=== PATIENT | female | born 1980 | race Caucasian/White ===

== ENCOUNTER 2019-07-25 05:01 | Inpatient (IN) | payer OTHER, SELFPAY ==
[2019-07-25] VITALS (216 sets, daily range): BP systolic 64–154; BP diastolic 29–114; PULSE 73–164; RESP 18–22; TEMP 36.4–37.4; O2SAT 95–100; BMI 32.2
--- NOTE | ~2019-07-25 | XR_ITS ---
EXAMINATION: XR pelvis 1-2V INDICATION: Low back pain TECHNIQUE: AP view the pelvis is obtained on two radiographs. COMPARISON: None available FINDINGS: There is diastases of the pubic symphysis. No fracture is identified. The soft tissues are unremarkable. IMPRESSION: 1. Diastases of the pubic symphysis. No fracture. Reviewed, dictated and finalized at location A.
--- NOTE | 2019-07-25 05:43 | LDADM ---
This patient, Deanne Chen, was admitted to Labor/Delivery/Recovery 102 on 07/25/19 at 05:01. Plans for labor, pain management and were discussed with patient. Patient/family oriented to hospital policies and general routines including ID bracelet, bed and alarms, visiting hours, pain management, procedures, bathroom and other care routines, personal items, smoking policy, room service/diet and guest tray routines, security routines, and visiting hours. Patient/Family are encouraged to report perceived risks to care and to ask questions if they do not understand what they are told or what they should do. See OBIX for further documentation.
[2019-07-25 06:07] LABS: Basophils Percent Auto 0.3 % (0.2-1.2); Eosinophils Percent Auto 0.2 % (0-4.4); Hematocrit 35.2 % (37.0-47.0); Hemoglobin 11.5 g/dL (12.0-15.0); Immature Granulocyte Absolute 0.06 K/mm3 (0.00-0.031); Immature Granulocyte Percent A 0.7 % (0-0.5); Lymphocytes Absolute Auto 2.22 K/mm3 (0.9-3.2); Lymphocytes Percent Auto 24.9 % (18.3-44.2); Mean Corpuscular HGB Conc 32.7 g/dl (32-36); Mean Corpuscular Volume 88.7 fl (80-100); Mean Platelet Volume 10.5 fl (7.4-10.4); Monocytes Absolute Auto 0.8 K/mm3 (0.1-0.6); Monocytes Percent Auto 8.6 % (2.6-8.5); Neutrophils Absolute Auto 5.8 K/mm3 (1.3-6.7); Neutrophils Percent Auto 65.3 % (45.5-73.1); Platelet Count Result 238 k/mm3 (150-375); Red Blood Count 3.97 M/mm3 (4.2-5.4); Red Cell Distribution Width 13.9 % (11.5-14.5); White Blood Count 8.9 K/mm3 (4.5-10.0)
--- NOTE | 2019-07-25 07:40 | WPDOBADMIT ---
Obstetrics - Admit Note Admission Note: record reviewed. No pertinent additions to the history and/or any subsequent changes in the physical findings that are not consistent with the expected course of the were found. MIL, start pitocin, pt declined amniotomy Additions to the history and/or subsequent changes in the physical findings follow. None.
[2019-07-25] MEDS: LACTATED RINGERS 1,000 ML 125 ML IV CONT ×5 (08:00→19:11)
[2019-07-25] MEDS: OXYTOCIN 30 UNITS/NS 500 ML 30 UNITS/500 ML BAG IV CONT (08:01)
[2019-07-25 09:31] LABS: Rapid Plasma Reagin Non-Reactive (NonReactive)
--- NOTE | 2019-07-25 14:30 | WPDANESEPPF ---
Anes - Initial Pre Proc Eval Procedure: Labor Epidural Date/Time: 07/25/19 14:30 Surgeon: Minor Martin MD Pre Op Diagnosis: Induction of Labor Patient Data Age: 38 Gender: F Height: 1.68 m Weight: 90.5 kg Last Vital Signs Temp 36.9 C 07/25/19 12:15 Pulse 91 07/25/19 15:31 BP 126/85 07/25/19 15:31 Pulse Ox 100 07/25/19 15:33 Allergies Allergy/AdvReac Type Severity Reaction Status Date / Time azithromycin Allergy Vomiting Verified 07/12/19 15:42 strawberry Allergy Hives Verified 07/12/19 15:42 Home Medications Medication Instructions Recorded Confirmed Type PNV cmb#95-ferrous fumarate-FA 1 tablet PO DAILY 07/12/19 07/25/19 History [] Laboratory Tests 07/25/19 07/25/19 07/25/19 05:51 05:51 05:51 WBC 8.9 K/mm3 K/mm3 (4.5-10.0) RBC 3.97 M/mm3 L M/mm3 (4.2-5.4) Hgb 11.5 g/dL L g/dL (12.0-15.0) Hct 35.2 % L % (37.0-47.0) MCV 88.7 fl fl (80-100) MCH 29.0 pg pg (26-34) MCHC 32.7 g/dl g/dl (32-36) RDW 13.9 % % (11.5-14.5) Plt Count 238 k/mm3 k/mm3 (150-375) MPV 10.5 fl H fl (7.4-10.4) Immature Gran % (Auto) 0.7 % H % (0-0.5) Neut % (Auto) 65.3 % % (45.5-73.1) Lymph % (Auto) 24.9 % % (18.3-44.2) [place] % (Auto) 8.6 % H % (2.6-8.5) Eos % (Auto) 0.2 % % (0-4.4) Baso % (Auto) 0.3 % % (0.2-1.2) Lymph # (Auto) 2.22 K/mm3 K/mm3 (0.9-3.2) [place] # (Auto) 0.8 K/mm3 H K/mm3 (0.1-0.6) Eos # (Auto) 0.0 K/mm3 K/mm3 (0-0.3) Baso # (Auto) 0.0 K/mm3 K/mm3 (0.0-0.1) Abs Immat Gran (auto) 0.06 K/mm3 H K/mm3 (0.00-0.031) Absolute Neuts (auto) 5.8 K/mm3 K/mm3 (1.3-6.7) Absolute Nucleated RBC 0.0 K/mm3 K/mm3 (0.0-0.012) Nucleated RBC % 0.0 % % (0.0-0.2) RPR Non-reactive (NonReactive) Blood Type O Positive Antibody Screen Negative Patient hx anesthesia problems: none Family hx anesthesia problems: none [facility] Family History Family History Other No pertinent family history Social History Social History Years smoked: 5 Smoking status: Former smoker Tobacco type: cigarettes Second hand tobacco smoke exposure: No Substance use: never Gender identity (if verbalized by the patient): Female Spiritual care concerns: No Anes - Eval Final PreProcedure Day of Procedure 07/25/19 14:30 Patient weight: normal Heart: regular rate and rhythm Lungs: normal air movement Airway: Mallampati scale class II Emergent: no Anesthetic plan: proceed Anesthesia type and monitoring: regional epidural Informed Consent: The patient's anesthetic plan and its attendant risks and benefits were discussed with the patient/family/POA. Questions were solicited and answers provided to the satisfaction of the patient/family/POA.
--- NOTE | 2019-07-25 16:06 | PM.OBPNLAB ---
Pain Control Date/time seen: 07/25/19 1400 SVE /-2. AROM moderate amount of clear odorless fluid
[2019-07-25] MEDS: ONDANSETRON INJ 4 MG/2 ML VIAL IV PUSH (22:41)
[2019-07-26] VITALS (22 sets, daily range): BP systolic 96–180; BP diastolic 58–156; PULSE 64–125; RESP 18–20; TEMP 36.3–36.8; O2SAT 99–100; BMI 10.0
--- NOTE | 2019-07-26 02:09 | P.PCNOB_ITS ---
OB - Delivery Note Procedure Delivery date: 07/26/19 Procedure: vaginal delivery Intrapartal events: None Induction method: AROM and per pitocin protocol Delivery monitor: external FHT, external uterine and internal uterine Route of delivery: Laceration description: Perineal - 1st Degree Delivery repair: vicryl Specimen: No Estimated blood loss (mL): 175 Anesthesia type: Epidural Disposition: other () [place] Baby Date of : 07/26/19 Time of : 01:50 Weeks of gestation at delivery: 39 gender: Female Weight (pounds): 8 Weight (ounces): 13 presentation: vertex position: Left Occiput Anterior Placenta delivery description: Spontaneous cord vessel description: 3 Vessels, Nuchal Cord, Loose and Reduced score one minute: 6 score five minutes: 9 Narrative: pt pain not in control unable to stay still,unable to push after delivery of head, marianela and suprapubic pressure did not help resolve, insurance agency manager was able to reduce the posterior arm and deliver the w/o difficulty, baby to nursery nurse and the warmer, mother and baby in stable condition
[2019-07-26] MEDS: OXYTOCIN 30 UNITS/NS 500 ML 30 UNITS/500 ML BAG 125 UNITS IV CONT (02:34)
[2019-07-26] MEDS: IBUPROFEN 600 MG TABLET PO ×3 (03:48→19:37)
[2019-07-26] MEDS: BENZOCAINE 20% AER SPR (*SP) 56 GM CAN 1 SPRAY TOPICAL (04:08)
[2019-07-26] MEDS: WITCH HAZEL 40 PADS 1 PAD TOPICAL (04:08)
--- NOTE | 2019-07-26 10:50 | PM.OBPNVD ---
OB - PN: Subj Subjective Date/time seen: 07/26/19 10:50 Interval history: pt c/o nerve pain left pain from positioning in labor, narcotics not helping Patient comments: other baby status: doing well OB - PN: Obj Data Labs CBC & Chem 7: 07/25/19 05:51 OB - PN A/P Plan day: 1 Plan: routine care Comments: plan flexeril and PT consult Time Spent With Patient Time: Total time spent is greater than 50% in coordination of care (as documented) at patient's floor/unit and/or counseling patient: Review of Systems Review of Systems: All systems reviewed & are unremarkable except as noted in HPI and below Exam Const: General: comfortable Resp: Effort & Inspection: normal respiratory effort
--- NOTE | 2019-07-26 11:15 | PC.NURSE ---
Called PT and left a message on [facility] regarding a PT consult to be done today.
--- NOTE | 2019-07-26 11:17 | PC.NURSE ---
Spoke with Olivia Aguilar CRNA regarding pt. c/o of pain and decreased mobility of rt. leg. She will see pt. today and evaluate.
--- NOTE | 2019-07-26 11:24 | WPDANLDPN2 ---
Anes-Prog Note L&D Date/Time: 07/26/19 11:24 Comfortable throughout: labor and delivery Neuraxial method: epidural Epidural/Spinal procedure site: clean & non-tender Neuro status: Neuro function grossly intact. Cardiovascular status: normal Respiratory status: normal Airway patency: baseline Mental status: baseline Post-Op hydration status: normal Vital Signs: Last Vital Signs Temp 36.3 C L 07/26/19 07:45 Pulse 68 07/26/19 07:45 Resp 18 07/26/19 07:45 BP 98/58 L 07/26/19 07:45 Pulse Ox 99 07/26/19 02:05 I/O: Intake & Output 07/25/19 07/26/19 07/26/19 23:59 07:59 15:59 Intake Total 1999 1300 240 Output Total 105 Balance 1999 1195 240 Post-procedural complaints: other (Epidural didn't work after multiple catheters with easy LORT and threading of catheter and CSE x2. Also pt with extreme position changes with legs at time of delivery due to shoulder dystocia. Pt now has c/o numbness and pain to right posterior buttock/hip with occasional pain shooting down leg. ) Patient feedback: Patient satisfied with anesthetic care. Other findings: Weakness to Right Leg. PT has been ordered per Evangelina Keenan.
[2019-07-26] MEDS: MULTIVIT/MIN/PREN/FOL AC/IRON TABLET 1 TAB PO (11:50)
[2019-07-26] MEDS: CYCLOBENZAPRINE HCL 10 MG TABLET PO ×2 (11:52→19:37)
--- NOTE | 2019-07-26 12:30 | PC.NURSE ---
PT here to see pt and to evaluate pain/mobility issues.
[2019-07-26] MEDS: DOCUSATE SODIUM 100 MG CAPSULE PO (19:37)
[2019-07-27] MEDS: KETOROLAC 30 MG/ML VIAL (*BKC) IV PUSH ×2 (01:09→08:30)
[2019-07-27] MEDS: CYCLOBENZAPRINE HCL 10 MG TABLET PO ×3 (03:52→21:35)
[2019-07-27 05:59] LABS: Hematocrit 26.5 % (37.0-47.0); Hemoglobin 8.4 g/dL (12.0-15.0)
[2019-07-27 08:30] VITALS: BP 97/57; PULSE 58; RESP 20; TEMP 36.8
[2019-07-27] MEDS: POLYSACCHARIDE IRON COMPLEX 150 MG CAPSULE PO ×2 (08:30→16:32)
[2019-07-27] MEDS: DOCUSATE SODIUM 100 MG CAPSULE PO ×2 (08:30→16:31)
[2019-07-27] MEDS: MULTIVIT/MIN/PREN/FOL AC/IRON TABLET 1 TAB PO (08:30)
--- NOTE | 2019-07-27 10:02 | P.PNOB_ITS ---
OB - PN: Subj Subjective Date/time seen: 07/27/19 10:02 Interval history: pt c/o nerve pain left pain from positioning in labor, narcotics not helping, PT eval and Xray, diagnosis is diastatis of pubis, 3 cm, Spoke with orthopedic Dr. Kerr who rec consult at [facility]/ [facility] due to the degree of separation. Pt currently using walker with assistance to restroom,Dr. colon notified OB - PN: Obj Data Labs CBC & Chem 7: 07/27/19 05:48 Labs: Laboratory Results - last 24 hr 07/27/19 05:48 Hgb 8.4 L D Hct 26.5 L Imaging Radiologist's impression: Impressions Pelvis X-Ray 07/27/19 08:43 IMPRESSION: 1. Diastases of the pubic symphysis. No fracture. OB - PN A/P Plan day: 2 Plan: other (continue pp care, plan PT today for d/c planning, continue NSAIDS, muscle relaxer, abdominal binder, pt may be d/c'd when able to walk with walker unassisted) Time Spent With Patient Time: Total time spent is greater than 50% in coordination of care (as documented) at patient's floor/unit and/or counseling patient: Exam Const: General: alert and acute distress (with walking/standing) Psych: Appearance: grossly normal Affect: normal affect Attitude: coope rative Judgement: Good judgement present (Psych)
--- NOTE | 2019-07-27 12:15 | PC.NURSE ---
PT here to evaluate pt for further needs and to assist pt with using the walker.
[2019-07-27] MEDS: IBUPROFEN 600 MG TABLET PO ×2 (16:32→22:37)
[2019-07-27 20:20] VITALS: BP 103/71; PULSE 71; RESP 18; TEMP 37.1; O2SAT 100
--- NOTE | 2019-07-27 21:30 | PC.NURSE ---
Patient viewed the discharge video Mother & Baby Care, The First Two Weeks . Patient was given the opportunity and encouraged to ask questions. Patient verbalized understanding of information shared and has been given the mother/baby guide for home reference.
[2019-07-28] MEDS: IBUPROFEN 600 MG TABLET PO ×2 (04:19→10:50)
[2019-07-28] MEDS: CYCLOBENZAPRINE HCL 10 MG TABLET PO ×2 (05:55→14:36)
[2019-07-28 07:55] VITALS: BP 97/56; PULSE 69; RESP 16; TEMP 37.1; O2SAT 100
--- NOTE | 2019-07-28 08:05 | P.PNOB_ITS ---
OB - PN: Subj Subjective Date/time seen: 07/28/19 08:05 pain improved. ambulating with walker, bleeding down, Interval history: pt c/o nerve pain left pain from positioning in labor, narcotics not helping, PT eval and Xray, diagnosis is diastatis of pubis, 3 cm, Spoke with orthopedic Dr. Kerr who rec consult at [facility]/ [facility] due to the degree of separation. Pt currently using walker with assistance to restroom,Dr. colon notified OB - PN: Obj Data Labs CBC & Chem 7: 07/27/19 05:48 Imaging Radiologist's impression: Impressions Pelvis X-Ray 07/27/19 08:43 IMPRESSION: 1. Diastases of the pubic symphysis. No fracture. OB - PN A/P Assessment and Plan (1) Traumatic diastasis of pubic symphysis due to delivery: Code(s): O71.6 - Obstetric damage to pelvic joints and ligaments Status: Acute (2) Term delivered: Code(s): O80 - Encounter for full-term uncomplicated delivery Status: Acute Assessment and Plan: ppd #3 - pain improved, has follow up with pt, to get outpt ortho consult, f/u in 32 weeks Time Spent With Patient Time: Total time spent is greater than 50% in coordination of care (as documented) at patient's floor/unit and/or counseling patient: Exam Const: General: comfortable, no acute distress and alert Resp: Effort & Inspection: normal respiratory effort Auscultation: no crackles, no rales and no rhonchi Cardio: Rate: regular rate Heart sounds: no click, no murmurs and no rubs GI: Inspection: non-distended GI Palp: No Tenderness to palpation present (GI) Auscultation: normal bowel sounds Other: Incision - CDI Extrem: General: normal to inspection, no pedal edema and no calf tenderness
--- NOTE | 2019-07-28 08:09 | PM.OBDSVD ---
DS: Discharge Diagnosis Discharge Diagnosis (1) Term delivered: Code(s): O80 - Encounter for full-term uncomplicated delivery Status: Acute OB - DS: Summary OB Procedures : None OB Procedures Intrapartum: Spontaneous Vag Delivery OB Procedures: : None Peripartum Data Delivery Method: Natural Vaginal complications: other (diastasis of pubic symphysis) Status at Discharge Functional status at discharge: independent ambulation Time Spent with Patient Time attestation: Total time spent providing and/or coordinating discharge services: Discharge Plan Discharge Patient Disposition: Home Health Service Activity: pelvic rest Diet: regular Patient Instructions: Antibiotic Form Stand Alone Forms: General Discharge Information Follow-up/Referrals: Minor Martin MD [Physician] - Discharge Medications: New hydrocodone-acetaminophen 5-325 mg tablet 1 - 2 tablet PO Q4H PRN (Reason: pain) Qty: 25 RF: 0 cyclobenzaprine 10 mg tablet 10 mg PO TID Qty: 30 RF: 1 Continued PNV cmb#95-ferrous fumarate-FA [] 28 mg iron- 800 mcg Tablet 1 tablet PO DAILY RF: 0 Date of admission: 07/25/19 05:01 Primary Care Provider: Isabela,Guillermo Wayne Admitting Provider: Minor Martin Attending physician on admission: Minor Martin
[2019-07-28] MEDS: MULTIVIT/MIN/PREN/FOL AC/IRON TABLET 1 TAB PO (08:14)
[2019-07-28] MEDS: DOCUSATE SODIUM 100 MG CAPSULE PO (08:14)
[2019-07-28] MEDS: POLYSACCHARIDE IRON COMPLEX 150 MG CAPSULE PO (08:14)
--- NOTE | 2019-07-28 08:27 | PCPTNOTE ---
Deanne Chen was evaluated for a wheeled walker on 07/28/2019 by this physical therapist. The wheeled walker will resolve patient's mobility limitations and will be used for ADL's within the home. The patient can safely use the wheeled walker. ?The wheeled walker will resolve the patient?s mobility deficits, including impaired strength. Shruthi Hinds, PT, DPT
--- NOTE | 2019-07-28 17:17 | PC.NURSE ---
1530Pt discharged at this time; she reviewed her discharge paper for herself and her baby and signed papers. To car per wheelchair; pt slowly transferred herself with her 's assistance into the car. Home in apparent stable condition.
== END 2019-07-28 15:30 | disposition home or self-care (01) | DRG 560 ==
LOC: ANHLDR 05:07 → ANHOB2 07-26 05:45
PROVIDERS: Advanced Practice Midwife; Admitting Provider Obstetrics & Gynecology; PCP Family Medicine Sports Medicine; Visit Provider Obstetrics & Gynecology
DX: O69.81X0 Labor and delivery complicated by cord around neck, without compression, not applicable or unspecified (principal); Z37.0 Single live birth; Z3A.40 40 weeks gestation of pregnancy; O70.0 First degree perineal laceration during delivery; O66.0 Obstructed labor due to shoulder dystocia
CPT/HCPCS: 36415; 72170; 85014; 85018; 85025; 86592; 86850; 86900; 86901; 97116; 97140; 97161; 97162; 97530; A9270; J1885; J2405; J2590; J2795; J3010; J7120

== ENCOUNTER 2019-09-22 13:30 | Outpatient (RCR) | payer OTHER, SELFPAY ==
--- NOTE | 2019-08-01 12:45 | PTOPEVAL ---
INITIAL PHYSICAL THERAPY EVALUATION and PLAN OF CARE Thank you for referring Deanne Chen to [facility]. Deanne will be seen 1-2x/wk for 4-6 wks. Please review, sign, date and return this plan of care AME. I agree with and certify that the following plan of care is medically necessary. Referring Physician Date Admitting Provider: Attending Provider: Ruben Martin MD Referring Provider: *PT Outpatient Evaluation Start: 08/01/19 11:20 Freq: Status: Active Protocol: Document 08/01/19 11:20 LIVIA (Rec: 08/01/19 12:45 LIVIA [id number]) Therapy Assessment Status Assessment Status Assessment Status Evaluation Outpatient Past Medical History Past Medical History Source of Past Medical History Patient Neurological History Hx Neurological Disorders No Significant History Cardiovascular History Hx Cardiac Disorders No Significant History Respiratory History Hx Asthma Yes: allergy induced Gastrointestinal History Hx Gastrointestinal Disorders No Significant History Genitourinary History Hx Genitourinary Disorders No Significant History Musculoskeletal History Hx Other Musculoskeletal Disorders Yes: pubic symphysis diaphysis with childbirth Hematological History Hx Hematological Disorders No Significant History Endocrine History Hx Endocrine Disorders No Significant History HEENT History Hx Dental Problems Yes: wisdom teeth extraction Integumentary History Hx Skin Disorders No Significant History Reproductive History Hx Abnormal Uterine Bleeding Yes: PP hemorrhage with 1st delivery Hx Other Reproductive Disorders Yes: , ovarian cyst, unilateral salpingo oophorectomy (Abdominal incision) Psychosocial History Hx Anxiety Yes: no meds Hx Depression Yes: no meds Pain History History of Any Previous or Ongoing No Significant History Instance of Pain Anesthesia History Hx Anesthesia Reactions No Significant History Evaluation Information Problem Diagnosis pubic symphysis diastasis Onset 07/26/2019 Subjective Information During delivery - baby's head Query Text:As Reported By Patient/ was sideways, umbilical was Family wrapped around her neck, then baby's shoulder was caught - increase in hip flexion and abduction done for delivery plus allergist immunologist was trying to turn baby - her hands were pt' s pelvis as well. Epidural did not take.
--- NOTE | 2019-09-01 16:08 | PTOPEVAL ---
PHYSICAL THERAPY RE-EVALUATION and UPDATED PLAN OF CARE Thank you for referring Deanne Chen to [facility]. She will continued to be seen in PT 1x/wk x 4 wks. Please review, sign, date and return this plan of care AME. I agree with and certify that the following plan of care is medically necessary. Referring Physician Date Admitting Provider: Attending Provider: Minor Martin MD Referring Provider: *PT Outpatient Evaluation Start: 08/01/19 11:20 Freq: Status: Active Protocol: Document 09/01/19 10:10 LIVIA (Rec: 09/01/19 16:03 LIVIA [id number]) Therapy Assessment Status Assessment Status Assessment Status Re-evaluation Evaluation Information Problem Subjective Information Christiana reports that she continues Query Text:As Reported By Patient/ to be able to do more things Family around the house and with the baby. She was able to get down and back up from the floor without help. She is more comfortable going down into the basement now - did climb stairs reciprocally without thinking about it - but then stopped and went back to single stepping. Increase ease getting into and out of bed - no need for pillow support. A little stiff in middle of night to get up - but once loosens up - does well. After prolonged sitting - a wider base gait pattern is used initially but then can walk normally. Saw Ortho MD - pubic symphysis at at 2 cm - she is to continue with PT - upgrade her activity level as long as she doesn't have pain. Pain Assessment Timing of Pain Assessment Timing of Pain Assessment Assessment Pain Scale Pain Scale Used Numeric (1 - 10) Self Report Pain Assessment Right Buttock(s) Reported Pain Level 0 Pain Description Aching,Shooting Lowest Pain Intensity 0 Greatest Pain Intensity 4 Pain Score Pain Score 0: Self Report Cervical and Lumbar ROM Lumbar ROM Lumbar Flexion (0-90) 50 Query Text:Active in Degrees Lumbar Extension (0-40) 20 Query Text:Active in Degrees Lumbar Lateral Flexion Right (0-40) 20 Query Text:Active in Degrees Lumbar Lateral Flexion Left (0-
--- NOTE | 2019-09-15 11:12 | PCPTNOTE ---
Patient called & cancelled scheduled appointment this date due to not feeling well. She may have mastitis - going to see MD.
--- NOTE | 2019-09-22 16:10 | PTOPEVAL ---
PHYSICAL THERAPY DISCHARGE SUMMARY Thank you for referring Deanne Chen to [facility]. Christiana has received 9 visits. All goals have been met. She is to continue with her HEP as well as her previous exercise programs that she was doing regularly prior to delivery 8 weeks ago. I agree with Christiana's discharge from PT. Referring Physician Date Admitting Provider: Attending Provider: Minor Martin MD Referring Provider: *PT Outpatient Evaluation Start: 08/01/19 11:20 Freq: Status: Active Protocol: Document 09/22/19 13:35 LIVIA (Rec: 09/22/19 16:10 LIVIA [email or web address]) Therapy Assessment Status Assessment Status Assessment Status Discharge Evaluation Information Problem Subjective Information Christiana reports that she had Query Text:As Reported By Patient/ mastitis last week - doing Family better since on medication - but able to continue to exercise except for 2 days. Returning to exercises videos that she used to do but with less resistance. She has returned back to previous ADL, IADL level except for running - which she did attempt a little jog/run today. Last about .1 mile before son got upset and they had to return home. Will occasionally feel a twinge of discomfort in R buttock if she gets out of bed via her prior method. Able to perform self correction if it is needed. Pain Assessment Timing of Pain Assessment Timing of Pain Assessment Assessment Pain Scale Pain Scale Used Numeric (1 - 10) Self Report Pain Assessment Right Buttock(s) Reported Pain Level 0 Lowest Pain Intensity 0 Greatest Pain Intensity 3 Pain Score Pain Score 0: Self Report Cervical and Lumbar ROM Lumbar ROM Lumbar ROM WNL Lumbar Comments pelvis, sacrum, and SIJ level and symmetrical. Symmetrical SIJ mobility. Palpation Assessment Palpation Palpation No increase in tenderness R SIJ and buttock region. Gait Assessment Gait Pattern Assessment Other Gait Observations normal gait pattern - without deviation Stair Climbing Assessment Stair Climbing Assessment Stair Climbing Assistive Devices None Number of Steps Climbed (Steps)
== END 2019-10-27 14:28 | disposition home or self-care (01) ==
LOC: ANHHIPT 13:30
PROVIDERS: PCP Obstetrics & Gynecology; Visit Provider Obstetrics & Gynecology
DX: O71.6 Obstetric damage to pelvic joints and ligaments (principal); Z3A.00 Weeks of gestation of pregnancy not specified
CPT/HCPCS: 97110; 97140; 97162

== ENCOUNTER 2020-06-09 11:00 | Outpatient (RCR) | payer OTHER, SELFPAY ==
--- NOTE | 2020-04-21 12:05 | PTOPEVAL ---
INITIAL PHYSICAL THERAPY EVALUATION and PLAN OF CARE Thank you for referring Deanne Chen to [facility].? Christiana is scheduled to be seen for physical therapy? 0-1x/week for 6 weeks. Please review, sign, date and return this plan of care AME. I agree with and certify that the following plan of care is medically necessary. Referring Physician Date Admitting Provider: Attending Provider: Evangelina Keenan CNM Referring Provider: RavindraPT Outpatient Evaluation Start: 04/21/20 10:39 Freq: Status: Active Protocol: Document 04/21/20 10:35 LIVIA (Rec: 04/21/20 12:05 LIVIA [email or web address]) Therapy Assessment Status Assessment Status Assessment Status Evaluation Outpatient Past Medical History Past Medical History Source of Past Medical History Recalled from Previous Visit, Confirmed with Patient/Family Neurological History Hx Neurological Disorders No Significant History Cardiovascular History Hx Cardiac Disorders No Significant History Respiratory History Hx Asthma Yes: allergy induced Gastrointestinal History Hx Gastrointestinal Disorders No Significant History Genitourinary History Hx Genitourinary Disorders No Significant History Musculoskeletal History Hx Musculoskeletal Disorders No Significant History Hematological History Hx Hematological Disorders No Significant History Endocrine History Hx Endocrine Disorders No Significant History HEENT History Hx Dental Problems Yes: wisdom teeth extraction Integumentary History Hx Skin Disorders No Significant History Reproductive History Hx Abnormal Uterine Bleeding Yes: PP hemorrhage with 1st delivery Hx Other Reproductive Disorders Yes: ovarian cyst, unilateral salpingo oophorectomy( Abdominal incision);mastitis Psychosocial History Hx Anxiety Yes: no meds Hx Depression Yes: no meds Pain History History of Any Previous or Ongoing No Significant History Instance of Pain Anesthesia History Hx Anesthesia Reactions No Significant History Evaluation Information Problem Diagnosis pelvic and perineal pain, pain in female pelvis Onset 04/01/2020 Additional Evaluation Detail did have trauma to pelvis 07/26/19 - increase in pubic symphysis distance - 3 cm Subjective Information Christiana reports that she was Query Text:As Reported By Patient/ getting out the car - snow was Family outside of door - stepped down onto R leg - went down further than what she thought
--- NOTE | 2020-06-09 12:23 | PTOPEVAL ---
PHYSICAL THERAPY DISCHARGE SUMMARY Thank you for referring Deanne Chen to [facility] Christiana has been seen x 6 visits. She has progress towards goals set. She is maintaining pelvic/SIJ alignment, gaining abdominal and hip strength, and upgrading functional activity level. She is ready for d/c from PT to HEP. I agree with Christiana's discharge from PT. Referring Physician Date Admitting Provider: Attending Provider: Evangelina Keenan CNM Referring Provider: Therapy Assessment Status Assessment Status Assessment Status Discharge Evaluation Information Problem Diagnosis pelvic and perineal pain, pain in female pelvis Subjective Information Christiana reports having increase in Query Text:As Reported By Patient/ soreness from increase in Family standing yesterday - 4 hours + - doing sports photos. Unable to sit. Slipped on rock with L foot while going to mailbox - able to catch herself. Christiana states that she is able to everything with Everley - but does have a little difficulty picking her up from the floor and putting her down in the crib. She isn 't doing any lifting with the laundry but otherwise does laundry. She is doing the vacuuming and some dishes. Some difficulty reported with putting dog bowls onto ground - suggest to elevate them. Able to make bed. Pain Assessment Timing of Pain Assessment Timing of Pain Assessment Assessment Pain Scale Pain Scale Used Numeric (1 - 10) Self Report Pain Assessment Right Pelvis Reported Pain Level 0 Pain Description Aching,Dull Lowest Pain Intensity 0 Greatest Pain Intensity 5 Pain Score Pain Score 0: Self Report Cervical and Lumbar ROM Lumbar ROM Lumbar ROM 75% of Normal Lumbar Comments pelvis/sacrum level in standing, equal standing flexion testing Cervical and Lumbar Muscle Testing Lumbar Strength Upper Abdominal Strength 5 Normal Lower Abdominal Strength 3+Fair+ Lower Extremity Muscle Strength Testing Hip Strength Right Hip Abduction Strength 4 Good PT Clinical Summary Clinical Summary Protocol: PTEVCODE PT Clinical Summary Pelvic Girdle Questionnaire - 28 pts
== END 2020-06-10 13:45 | disposition home or self-care (01) ==
LOC: ANHHIPT 11:00
PROVIDERS: PCP Obstetrics & Gynecology; Visit Provider Advanced Practice Midwife
DX: R10.2 Pelvic and perineal pain (principal)
CPT/HCPCS: 97110; 97140; 97161

== ENCOUNTER 2020-09-10 14:20 | Outpatient (CLI) | payer OTHER, SELFPAY ==
[2020-09-10 14:43] LABS: Basophils Percent Auto 0.2 % (0.2-1.2); Eosinophils Percent Auto 0.2 % (0-4.4); Hematocrit 35.8 % (37.0-47.0); Hemoglobin 12.1 g/dL (12.0-15.0); Immature Granulocyte Absolute 0.01 K/mm3 (0.00-0.031); Immature Granulocyte Percent A 0.2 % (0-0.5); Lymphocytes Absolute Auto 0.75 K/mm3 (0.9-3.2); Lymphocytes Percent Auto 16.4 % (18.3-44.2); Mean Corpuscular HGB Conc 33.8 g/dl (32-36); Mean Corpuscular Hemoglobin 31.8 pg (26-34); Monocytes Absolute Auto 0.2 K/mm3 (0.1-0.6); Monocytes Percent Auto 4.8 % (2.6-8.5); Neutrophils Absolute Auto 3.6 K/mm3 (1.3-6.7); Neutrophils Percent Auto 78.2 % (45.5-73.1); Platelet Count Result 179 k/mm3 (150-375); Red Blood Count 3.81 M/mm3 (4.2-5.4); Red Cell Distribution Width 12.6 % (11.5-14.5); White Blood Count 4.6 K/mm3 (4.5-10.0)
== END 2020-09-10 14:21 | disposition home or self-care (01) ==
PROVIDERS: PCP Obstetrics & Gynecology; Visit Provider Obstetrics & Gynecology
DX: O26.819 Pregnancy related exhaustion and fatigue, unspecified trimester (principal); Z3A.00 Weeks of gestation of pregnancy not specified
CPT/HCPCS: 36415; 85025

== ENCOUNTER 2020-09-11 13:23 | Emergency (ER) | payer OTHER, SELFPAY ==
[2020-09-11 13:26] VITALS: BP 117/73; PULSE 106; RESP 20; TEMP 37.5; O2SAT 100
--- NOTE | 2020-09-11 13:31 | ECG_ITS ---
Measurements Intervals [place] Rate: 109 P: 50 NH: 139 QRS: 30 QRSD: 73 T: 10 QT: 319 QTc: 430 Interpretive Statements SINUS TACHYCARDIA POSSIBLE LEFT ATRIAL ENLARGEMENT LOW QRS VOLTAGE IN PRECORDIAL LEADS BORDERLINE T WAVE ABNORMALITY- INFERIOR LEADS BASELINE ARTIFACT- I, III, AVR, AVL ABNORMAL ECG Electronically Signed On 09-11-2020 15:34:32 CDT by John Curran D.O.
[2020-09-11 13:58] LABS: Basophils Percent Auto 0.2 % (0.2-1.2); Hematocrit 36.1 % (37.0-47.0); Immature Granulocyte Absolute 0.02 K/mm3 (0.00-0.031); Immature Granulocyte Percent A 0.5 % (0-0.5); Lymphocytes Absolute Auto 0.89 K/mm3 (0.9-3.2); Lymphocytes Percent Auto 20.1 % (18.3-44.2); Mean Corpuscular HGB Conc 33.2 g/dl (32-36); Mean Corpuscular Hemoglobin 31.2 pg (26-34); Mean Corpuscular Volume 93.8 fl (80-100); Mean Platelet Volume 10.4 fl (7.4-10.4); Monocytes Absolute Auto 0.1 K/mm3 (0.1-0.6); Monocytes Percent Auto 3.2 % (2.6-8.5); Neutrophils Absolute Auto 3.4 K/mm3 (1.3-6.7); Platelet Count Result 158 k/mm3 (150-375); Red Blood Count 3.85 M/mm3 (4.2-5.4); Red Cell Distribution Width 12.6 % (11.5-14.5); White Blood Count 4.4 K/mm3 (4.5-10.0)
[2020-09-11 14:12] LABS: Alanine Aminotransferase 14 U/L (4-35); Albumin Level 3.2 g/dL (3.5-5.1); Alkaline Phosphatase 114 U/L (38-126); Anion Gap 9 mmol/L (8-16); Aspartate Amino Transferase 28 U/L (14-36); Bilirubin,Total < 0.1 mg/dL (0.2-1.3); Blood Urea Nitrogen 6 mg/dL (7-17); Carbon Dioxide 19 mmol/L (22-30); Chloride 105 mmol/L (98-107); Estimated CRCL calculation 140 ml/min; Estimated Glomerular Filt Rate > 60; Glucose 104 mg/dL (65-110); Potassium 3.5 mmol/L (3.4-5.0); Sodium 133 mmol/L (137-145)
[2020-09-11 14:23] LABS: Add Urine Microscopic? YES; Amorphous Sediment Urine Few; Appearance Urine Cloudy (Clear); Bacteria Urine Trace /hpf; Bilirubin Urine Negative (Negative); Blood Urine Negative (Negative); Color Urine Yellow (Yellow); Glucose Urine UA Negative (Negative); Ketones Urine 2+ mg/dL (Negative); Leukocyte Esterase Ur Negative LEU/UL (Negative); Mucus Urine Rare /lpf; Nitrate Urine Negative (Negative); Protein Urine Negative (Negative); RBC Urine 0-2 /hpf (0-2); Specific Grav Ur 1.018 (1.001-1.035); Squamous Epithelial Cell Urine Few /hpf (Few); Urobilinogen Urine Negative mg/dL (<2.0); WBC Urine 0-3 /hpf
[2020-09-11 15:30] VITALS: BP 129/82; PULSE 84; RESP 16; O2SAT 99
--- NOTE | 2020-09-11 16:37 | ED.GENADULT ---
HPI - General Adult General Chief complaint: Weakness Stated complaint: weakness/currently 27 weeks Time Seen by Provider: 09/11/20 15:41 Source: patient Mode of arrival: ambulatory Limitations: no limitations History of Present Illness HPI narrative: Patient is 39 years old white female presents with weakness with activity since 9 days ago. 1 week ago with negative work-up. Patient complaining of lightheadedness, dizziness and palpitation on exertion, her iWatch showing heart rate up to 105. Patient denies any chest pain or leg pain. Patient also denies fever, chills, urinary symptoms, vaginal bleeding or discharge. Patient is 27 weeks , 4, para 3, 0 Patient also with complaining of runny nose for the last 3 weeks, subsequently developed frontal headache and maxillary pain for the last 7 days. Related Data Home Medications Medication Instructions Recorded Confirmed PNV cmb#95-ferrous fumarate-FA 1 tablet PO DAILY 07/12/19 07/25/19 [] Allergies Allergy/AdvReac Type Severity Reaction Status Date / Time strawberry Allergy Hives Verified 09/15/19 16:43 azithromycin AdvReac Vomiting Verified 09/11/20 17:19 Review of Systems Review of Systems: CONSTITUTIONAL: Denies fever, chills, or sweats. EYES: Denies visual changes, redness, or discharge. ENT: Denies rhinorrhea, congestion, sore throat, or otalgia. CARDIOVASCULAR: Denies chest pain, palpitations, or edema. RESPIRATORY: Denies cough or dyspnea. GASTROINTESTINAL: Denies abdominal pain, nausea, vomiting, or diarrhea. GENITOURINARY: Denies dysuria or hematuria. SKIN: Denies rash or itching. MUSCULOSKELETAL: Denies back pain, joint pain, or myalgia. NEUROLOGIC: Denies headache, numbness, or weakness. PSYCHIATRIC: Denies anxiety or depression. PMFSH Family History Family History Other No pertinent family history Social History Social History Years smoked: 5 Smoking status: Former smoker Tobacco type: cigarettes Second hand tobacco smoke exposure: No Substance use: never Gender identity (if verbalized by the patient): Female Spiritual care concerns: No Exam Narrative: General appearance: Well-developed, well-nourished Skin: Normal color Head: Normocephalic, nontraumatic Eyes: Clear conjunctiva ENT: Oropharynx normal, ears normal, nose normal Neck: Supple, nontender Chest and respiratory: Airway patent, no respiratory distress, no accessory muscle use Heart: Regular rate/rhythm Abdomen: Soft, nontender, no organomegaly, quiet bowel sounds Vascular: Normal peripheral pulses, normal capillary refill. Musculoskeletal: Normal range of motion, nontender back Neurologic: Alert and oriented ?3, MALT SPECIFICATIONS CONTROL ASSISTANT is normal as tested, no gross motor deficit Course Course Emergency Course: Stable Vital Signs Vital signs: Vital Signs Temperature 37.5 C 09/11/20 13:26 Pulse Rate 106 H 09/11/20 13:26 Respiratory Rate 20 09/11/20 13:26 Blood Pressure 117/73 09/11/20 13:26 Pulse Oximetry 100 09/11/20 13:26 Temperature 37.5 C 09/11/20 13:26 Pulse Rate 96 09/11/20 18:16 Respiratory Rate 15 09/11/20 18:16 Blood Pressure 119/84 09/11/20 18:16 Pulse Oximetry 98 09/11/20 18:16 Medical Decision Making [facility] Narrative Medical decision making narrative: Patient presents with episodes of lightheadedness, dizziness and palpitation also general weakness. Patient is 27 weeks which high likely the underlying cause of patient's symptoms. Labs, UA, EKG ordered. Further plan to follow. , Work-up showed normal white coun
[2020-09-11 17:22] VITALS: BP 95/57; PULSE 83
[2020-09-11 17:24] VITALS: BP 105/68; PULSE 83
[2020-09-11 17:26] VITALS: BP 129/82; PULSE 97
[2020-09-11 18:09] LABS: Thyroid Stimulating Hormone 0.495 uIU/mL (0.465-4.680)
[2020-09-11 18:16] VITALS: BP 119/84; PULSE 96; RESP 15; O2SAT 98
== END 2020-09-11 18:20 | disposition home or self-care (01) ==
PROVIDERS: Emergency Medicine; Emergency Provider Emergency Medicine; PCP Obstetrics & Gynecology
DX: R53.1 Weakness (principal); R00.2 Palpitations; J32.9 Chronic sinusitis, unspecified; Z87.891 Personal history of nicotine dependence; R00.0 Tachycardia, unspecified; R94.31 Abnormal electrocardiogram [ECG] [EKG]
CPT/HCPCS: 36415; 80053; 81001; 84443; 85025; 93005; 99283; J7030

== ENCOUNTER 2020-09-14 13:52 | Observation (INO) | payer OTHER, SELFPAY ==
[2020-09-14] VITALS (20 sets, daily range): BP systolic 111; BP diastolic 69; PULSE 82–102; RESP 16; TEMP 36.9; O2SAT 96–100; BMI 30.4
--- NOTE | ~2020-09-14 | XR_ITS ---
EXAMINATION: XR chest 1V portable DATE: 09/14/2020 17:59 INDICATION: Shortness of breath. TECHNIQUE: A single frontal view of the chest was obtained. COMPARISON: Chest 2 views 10/18/2015 FINDINGS: There are mild airspace opacities in left midlung zone. No pleural effusion or pneumothorax . The heart size is normal. IMPRESSION: 1. Mild airspace opacities in left midlung zone, consistent with atelectasis versus pneumonia. Reviewed, dictated and finalized at location A. IMPRESSION: 1. Mild airspace opacities in left midlung zone, consistent with atelectasis ve rsus pneumonia.
--- NOTE | ~2020-09-14 | US_ITS ---
EXAMINATION: US venous doppler [facility] DATE: 09/15/2020 11:19 INDICATION: Shortness of breath TECHNIQUE: Gallegos scale images without and with compression and Doppler images of the bilateral lower e xtremity veins were obtained. COMPARISON: None FINDINGS: The right common femoral vein, profunda femoral vein, femoral vein, popliteal vein, peroneal trunk, p osterior tibial veins, and greater saphenous vein are patent. The left common femoral vein, profunda femoral vein, femoral vein, popliteal vein, peroneal trunk, po sterior tibial veins, and greater saphenous vein are patent. IMPRESSION: 1. Patent bilateral lower extremity veins. No evidence of deep venous thrombosis. Reviewed, dictated and finalized at location A. IMPRESSION: 1. Patent bilateral lower extremity veins. No evidence of deep venous thrombosi s.
--- NOTE | 2020-09-14 14:21 | ECHO_ITS ---
Patient Info Name: Deanne Chen Age: 39 years : 1980 Gender: Female Ht: 66 in Wt: 188 lbs BSA: 2.02 m2 HR: 89 bpm BP: 111 / 69 mmHg Heart Rhythm: Sinus Rhythm Technical Quality: Good Exam Date: 09/14/2020 2:55 PM Exam Location: [facility] Patient Status: Outpatient Admit Date: 09/14/2020 Staff Ordering Physician: Minor Martin MD Carport Erector: Tammi Solomon RDCS Attending Provider: Minor Martin MD Referring Physician: Veronica RAMOS; Exam Type: CA echo doppler color flow Study Info Indications R06.02 - Shortness of breath Complete two-dimensional, color flow and Doppler transthoracic echocardiogram is performed. Summary 1. Complete two-dimensional, color flow and Doppler transthoracic echocardiogram is performed. 2. Left ventricular systolic function is normal, estimated at 65-70%. 3. There is no increased left ventricular wall thickness. 4. The left ventricular diastolic function is grade I diastolic dysfunction. 5. There is no mitral valve regurgitation. 6. There is no aortic valve stenosis. 7. There is trace tricuspid valve regurgitation. 8. No pulmonary hypertension, estimated pulmonary arterial systolic pressure is 26 mmHg. 9. Normal inferior vena cava with >50% collapse upon inspiration consistent with normal right atrial pressure, 5 mmHg. 10. There is small anteriorly located pericardial effusion 0.4-0.5cm without tamponade physiology. Left Ventricle Left ventricular chamber dimension is normal. Left ventricular systolic function is normal, estimated at 65-70%. There is no increased left ventricular wall thickness. The left ventricular diastolic function is grade I diastolic dysfunction. Right Ventricle Right ventricular chamber dimension is normal. Right ventricular systolic function is normal. Left Atria Left atrial chamber dimension is normal. Right Atria Right atrial chamber dimension is normal. Aortic Valve The aortic valve is probable trileaflet. There is no aortic valve stenosis. There is no aortic valve regurgitation. Pulmonic Valve The pulmonic valve is not well visualized. Mitral Valve The mitral valve has normal leaflets. There is no mitral valve regurgitation. Tricuspid Valve The tricuspid valve leaflets are normal. There is trace tricuspid valve regurgitation. No pulmonary hypertension, estimated pulmonary arterial systolic pressure is 26 mmHg. Pericardium/Pleural The pericardium appears normal. There is small anteriorly located pericardial effusion 0.4-0.5cm without tamponade physiology. Inferior Vena Cava Normal inferior vena cava with >50% collapse upon inspiration consistent with normal right atrial pressure, 5 mmHg. Aorta The aortic root size at the sinus of Valsalva is normal. Left Ventricular Outflow Tract Name Value Normal LVOT 2D LVOT Diameter 1.9 cm LVOT Doppler LVOT Peak Gradient 6 mmHg LVOT Mean Gradient 4 mmHg LVOT VTI 19 cm LVOT VTI/AV VTI Ratio 0.8 LVOT Stroke Volume
--- NOTE | 2020-09-14 17:49 | PM.IMHP ---
H&P: HPI History of Present Illness Date/Time: 09/14/20 17:49 This patient is a 39-year-old multiparous female who presents for worsening dyspnea. She became increasingly short of breath. She has very little exercise tolerance. She becomes short of breath With little ambulation. This is new onset. She does report that she has become short of breath in the past with colds. She has never been diagnosed with asthma. But she was prescribed an inhaler. She did report some relief historically with inhaler. She denies any chest pain. she denies any pleurisy. She denies any contractions, she denies any vaginal bleeding. She denies any nausea, vomiting, fever, chills. She reports good movement. Chief Complaint: Shortness of breath Review of Systems Constitutional: Constitutional: Reports no additional constitutional complaints, Denies fatigue, Denies headache(s), Denies lethargy and Denies weakness Eyes: Eyes: Reports no additional eye complaints, Denies blurry vision and Denies photophobia ENT: Reports as per HPI, Denies headache(s) and Denies neck pain Cardiovascular: Cardiovascular: Denies chest pain, Denies diaphoresis, Denies leg edema, Denies palpitations and Denies dyspnea Respiratory: Respiratory: Denies hemoptysis, Denies dyspnea and Denies wheezing Gastrointestinal: Gastrointestinal: Denies abdominal pain, Denies melena, Denies bloating, Denies hematochezia, Denies nausea and Denies vomiting Genitourinary: Genitourinary: Reports no additional female genitourinary complaints Musculoskeletal: Musculoskeletal: Denies joint swelling, Denies neck pain, Denies numbness and Denies stiffness Neurologic: Denies Abnormal speech present, Denies confusion, Denies headache(s), Denies numbness and Denies weakness Psychiatric: Psychiatric: Denies anxiety, Denies confusion, Denies depression, Denies homicidal ideation and Denies suicidal ideation Endocrine: Endocrine: Denies fatigue and Denies palpitations Allergic/Immunologic: Allergic/Immunologic: Denies wheezing [facility] Family History Family History Other No pertinent family history Social History Social History Years smoked: 5 Smoking status: Former smoker Tobacco type: cigarettes Second hand tobacco smoke exposure: No Substance use: never Gender identity (if verbalized by the patient): Female Spiritual care concerns: No Meds Home Medications and Allergies Home Medications Medication Instructions Recorded Confirmed Type PNV cmb#95-ferrous fumarate-FA 1 tablet PO DAILY 07/12/19 07/25/19 History [] cyclobenzaprine 10 mg PO TID #30 tablet 07/28/19 Rx hydrocodone-acetaminophen 1 - 2 tablet PO Q4H PRN #25 tablet 07/28/19 Rx amoxicillin 875 mg PO Q12H #20 tablet 09/11/20 Rx ipratropium bromide 2 spray INTRANASAL QID #15 ml 09/11/20 Rx Allergies Allergy/AdvReac Type Severity Reaction Status Date / Time strawberry Allergy Hives Verified 09/15/19 16:43 azithromycin AdvReac Vomiting Verified 09/11/20 17:19 Vital Signs Vital Signs - 24 hr 09/14/20 14:49 09/14/20 17:13 09/14/20 17:18 Pulse Rate 93 Blood Pressure 111/69 Pulse Oximetry 96 97 09/14/20 17:23 09/14/20 17:28 09/14/20 17:33 Pulse Rate Blood Pressure Pulse Oximetry 97 98 97 09/14/20 17:38 09/14/20 17:43 09/14/20 17:48 Pulse Rate Blood Pressure Pulse Oximetry 98 98 98 Exam Const: General: healthy appearing, comfortable and no acute distress; No confusion Orientation/consciousness: No confusion Eyes: Direct Ophthalmoscopy: No photophobia Resp: Auscultation: clear to auscultation bilaterally, no rales, no rhonchi and no wheezes Cardio: Rate: regular rate Heart sounds: no click, no murmurs and no rubs GI: Inspection: non-distended GI Palp: No abdominal tenderness Auscultation: normal bowel sounds Neuro: General
--- NOTE | 2020-09-14 18:48 | OBADM ---
This patient, Deanne Chen, admitted to the OB room OB Post 113 for observation. Patient/family oriented to hospital policies and general routines including ID bracelet, bed and alarms, visiting hours, pain management, procedures, bathroom and other care routines, personal items, smoking policy, room service/diet, and visiting hours. Patient/Family are encouraged to report perceived risks to care and to ask questions if they do not understand what they are told or what they should do.
[2020-09-14 18:57] LABS: Hematocrit 36.7 % (37.0-47.0); Hemoglobin 12.2 g/dL (12.0-15.0); Mean Corpuscular HGB Conc 33.2 g/dl (32-36); Mean Corpuscular Hemoglobin 30.8 pg (26-34); Mean Corpuscular Volume 92.7 fl (80-100); Mean Platelet Volume 10.3 fl (7.4-10.4); Platelet Count Result 170 k/mm3 (150-375); Red Blood Count 3.96 M/mm3 (4.2-5.4); Red Cell Distribution Width 12.6 % (11.5-14.5); White Blood Count 5.3 K/mm3 (4.5-10.0)
[2020-09-14 19:29] LABS: Band Neutrophils Percent 6 % (0-6); Lymphocytes Absolute Manual 0.63 K/mm3 (1.1-4.5); Monocytes Percent Manual 2 % (3-9); Neutrophils Absolute Manual 4.55 K/mm3 (1.7-7.2); Neutrophils Percent Manual 80 % (46-73); Platelet Estimate Adequate (Adequate); Total Cells Counted 100
[2020-09-15] VITALS (21 sets, daily range): BP systolic 89–123; BP diastolic 46–79; PULSE 76–115; RESP 17–18; TEMP 36.2–37.6; O2SAT 96–98
[2020-09-15] MEDS: ACETAMINOPHEN 325 MG TABLET 650 MG PO ×3 (06:03→17:37)
[2020-09-15] MEDS: ALBUTEROL SULFATE (*SP) AEROSOL 1 PUFF 2 PUFF INHALATION (06:25)
--- NOTE | 2020-09-15 08:05 | PM.IMCN ---
Assessment and Plan Assessment and plan (1) Dyspnea: Code(s): R06.00 - Dyspnea, unspecified Status: Acute (2) Diarrhea: Code(s): R19.7 - Diarrhea, unspecified Status: Acute (3) 27 weeks gestation of : Code(s): Z3A.27 - 27 weeks gestation of Status: Acute Additional Plan Patient has been admitted to the OBGYN service for dyspnea. Chest x-ray reviewed personally with concerns for mild airspace opacity in left mid lung zone. She does have a cough but no fever or elevated white count to suggest bacterial pneumonia. Agree with COVID testing since this could unify the diagnosis of her Gi symptoms and dyspnea. She is unvaccinated. None of her family are vaccinated as well. She is high risk with her . The small pericardial effusion could be viral related. Follow-up on COVID testing. Will check orthostatic vital signs to exclude orthostatic hypotension from dehydration. Cardiology been consulted and will await their evaluation and recommendations. Do not feel her asthma is contributing to her symptoms. PE seems less likely as well but cannot completely exclude this diagnosis. She is tachycardic at times which would not be unexpected if she was dehydrated but will proceed with lower extremity venous Dopplers since this is on the differential and COVID does cause hypercoagulable state. Monitor stool output. Monitor oral intake. Will add supplements. Thank you so much for allowing me to be part of this patient's care. Will continue to follow along with you. HPI Data of Consult Consult date: 09/15/20 Requesting Physician: Minor Martin MD Primary Care Provider: EMPLOYEE RELATIONS DIRECTOR PHYSICIAN Consult Narrative Reason for consult: Medical Management Narrative: Deanne Chen is a 39yo female currently 27wks GA IUP admitted for SOB. Patient has been feeling more short of breath with exertion which began about 10 days ago. She has also been feeling weak. She is diffusely weak without numbness or tingling in her hands or feet or focal weakness. Her shortness of breath has worsened to the point where even mild exertion causes her to be dyspneic. Does have a nonproductive cough. She does have chest pain with the cough. She has been having a frontal sinus type headache as well as postnasal drainage and rhinorrhea. She has asthma but denies wheezing. She last used her inhaler about a year ago. Her asthma is mostly allergy or viral induced. Her has been having similar cold and allergy symptoms for the past few weeks. Her [id number] was treated for a sinus infection a month ago with antibiotics but otherwise her children have been healthy. Patient had decreased oral intake over the past week. She denies any nausea or vomiting but states she gets stomach cramps after eating resulting in diarrhea. No melena or hematochezia. She has been lightheaded when standing. He is not sure if she has had weight loss but mentions that she has not had any weight gain in the past 3 months. No pleuritic chest pain. No pedal edema or calf pain. No dysuria or hematuria. No vaginal bleeding or vaginal discharge. No anosmia or dysgeusia. She has not had a COVID vaccine. Nobody in her family has had a COVID vaccine. No COVID exposure that she is aware of. She was seen in the ED here on 09/11/20 for weakness (Pt denied dyspnea symptoms in ROS). Her white count was 4400. TSH was normal. CMP was within normal limits. Urinalysis showed 2+ ketones but otherwise was negative. She was not hypoxic. Blood pressure was 95/57 supine but 129/82 when standing. She was diagnosed with sinusitis treated with amoxicillin and ipratropium nasal spray and discharged home. She stopped the antibiotic after 2 days because she felt this was worsening her abdominal cramping and diarrhea. Some of these GI symptoms did improve off antibiotics. Patient was seen by her OBGYN and admitted for the worsening shortness o
--- NOTE | 2020-09-15 09:38 | PC.NURSE ---
0830- at bedside to assess patient.
--- NOTE | 2020-09-15 11:02 | PC.NURSE ---
1050-Bedside US being performed.
--- NOTE | 2020-09-15 11:55 | PM.OBPNVD ---
OB - PN: Subj Subjective Date/time seen: 09/15/20 11:55 Narrative: Patient is fearful of potential COVID diagnosis, she is tearful, her shortness of breath the stable. She reports good movement. She denies cramping or bleeding. She has reported to internal medicine GI symptoms. These are ongoing stable at this time. OB - PN: Obj Data Labs CBC & Chem 7: 09/14/20 18:44 Labs: Laboratory Results - last 24 hr 09/14/20 18:44 WBC 5.3 RBC 3.96 L Hgb 12.2 Hct 36.7 L MCV 92.7 MCH 30.8 MCHC 33.2 RDW 12.6 Plt Count 170 MPV 10.3 Immature Gran % (Auto) Not Reportable Neut % (Auto) Not Reportable Lymph % (Auto) Not Reportable Twiggs % (Auto) Not Reportable Eos % (Auto) Not Reportable Baso % (Auto) Not Reportable Lymph # (Auto) Not Reportable Twiggs # (Auto) Not Reportable Eos # (Auto) Not Reportable Baso # (Auto) Not Reportable Abs Immat Gran (auto) Not Reportable Absolute Neuts (auto) Not Reportable Absolute Nucleated RBC Not Reportable Total Counted 100 Neutrophils % (Manual) 80 H Band Neutrophils % 6 Lymphocytes % (Manual) 12.0 L Monocytes % (Manual) 2 L Nucleated RBC % Not Reportable Abs Neuts (Manual) 4.55 Abs Lymphs (Manual) 0.63 L Abs Monocytes (Manual) 0.10 Platelet Estimate Adequate Imaging Radiologist's impression: Impressions Chest X-Ray 09/14/20 18:00 IMPRESSION: 1. Mild airspace opacities in left midlung zone, consistent with atelectasis versus pneumonia. Venous Doppler Study 09/15/20 11:20 IMPRESSION: 1. Patent bilateral lower extremity veins. No evidence of deep venous thrombosis. OB - PN A/P Assessment and Plan (1) 27 weeks gestation of : Code(s): Z3A.27 - 27 weeks gestation of Status: Acute (2) Dyspnea: Code(s): R06.00 - Dyspnea, unspecified Status: Acute (3) Diarrhea: Code(s): R19.7 - Diarrhea, unspecified Status: Acute Plan Comments: Patient is a 39-year-old multiparous female 27 weeks gestation with shortness of breath. There is a high suspicion on of COVID infection. Internal medicine noted a pericardial infusion, there is middle lobe atelectasis on chest x-ray. We await cardiology consult. Will consider discharge after cardiology sees her. There is reassuring status. Time Spent With Patient Time: Total time spent is greater than 50% in coordination of care (as documented) at patient's floor/unit and/or counseling patient: Exam Const: General: comfortable, no acute distress and alert Resp: Effort & Inspection: normal respiratory effort Auscultation: no crackles, no rales and no rhonchi Cardio: Rate: regular rate Heart sounds: no click, no murmurs and no rubs GI: Inspection: non-distended GI Palp: No Tenderness to palpation present (GI) Auscultation: normal bowel sounds Extrem: General: normal to inspection, no pedal edema and no calf tenderness
[2020-09-15 18:07] LABS: SARS-CoV-2 RNA PCR Positive
--- NOTE | 2020-10-10 18:58 | P.DS_ITS ---
DS: Admitting Diagnosis Admitting Diagnosis dyspnea DS: Discharge Diagnosis Discharge Diagnosis (1) Dyspnea: Code(s): R06.00 - Dyspnea, unspecified Status: Acute (2) 27 weeks gestation of : Code(s): Z3A.27 - 27 weeks gestation of Status: Acute DS: Summary Hospital Course Hospital Course: This patient is a 39-year-old female presented to the office with dyspnea. She was admitted to the hospital for dyspnea and evaluation of her cardiac status. She was found to test positive for SARS. She was found to have a pericardial effusion. supportive care continued throughout her stay. She was hospitalized for 2-3 days. She saw Cardiology and Internal Medicine. After period of observation she was found to be stable. She was eager to be discharged. She was discharged home. Time Spent with Patient Time attestation: Total time spent providing and/or coordinating discharge services: Discharge Plan Discharge Attending physician on discharge: Minor Martin Consulting providers: Phil Luna ; Mamadou Ying ; Philip Alston ; Jeovany Ghosh V. ; Kennedy Goodrich Discharging Clinician: Minor Martin Anticipated Discharge Date/Time: 09/15/20 18:35 Patient Disposition: Home, Self-Care Activity: as tolerated Diet: as tolerated Discharge Instructions: OB ANTEPARTUM DISCHARGE INSTRUCTIONS This information is given to help you properly care for yourself at home after your discharge from the hospital. Follow these instructions until your doctor tells you otherwise. DIET: Advance As Tolerated Additional Diet Instructions: ACTIVITY: As Tolerated Additional Activity Instructions: RETURN TO LABOR AND DELIVERY IF YOU HAVE: Any Change In Baby's Normal Movement Pattern Any Leakage of Fluid Vaginal Bleeding Additional Reasons to Return to Labor and Delivery: FOLLOW-UP CARE: Keep Next Scheduled Appointment Valuables released to patient or family? N/A Medications from home returned to patient? N/A I Acknowledge Receipt of and Understand the Above Instructions IF YOU HAVE ANY QUESTIONS REGARDING THESE INSTRUCTIONS, PLEASE CALL [phone]. IF PROBLEMS ARISE, CALL YOUR PROVIDER. IF EMERGENCY CARE IS NEEDED, [facility] EMERGENCY ROOM IS AVAILABLE 24 HOURS A DAY. Stand Alone Forms: General Discharge Information Follow-up/Referrals: Minor Martin MD [Physician] - Discharge Medications: New acetaminophen [Mapap (acetaminophen)] 325 mg Tablet 650 mg PO Q4H PRN (Reason: Mild Pain (1-3) Or Fever) RF: 0 albuterol sulfate [Proventil HFA] 90 mcg/actuation Hfa Aerosol Inhaler 2 puff inhalation Q6HRT PRN (Reason: Shortness Of Breath) Qty: 1 RF: 0 albuterol sulfate [Ventolin HFA] 90 mcg/actuation Hfa Aerosol Inhaler 2 puff INHALATION Q6H PRN (Reason: Shortness Of Breath) Qty: 1 RF: 0 Continued PNV cmb#95-ferrous fumarate-FA [] 28 mg iron- 800 mcg Tablet 1 tablet PO DAILY RF: 0 amoxicillin 875 mg tablet 875 mg PO Q12H Qty: 20 RF: 0 Date of admission: 09/14/20 13:52 Primary Care Provider: PHYSICIAN,CHAIN DYER Admitting Provider: Minor Martin Attending physician on admission: Minor Martin Condition: Stable
== END 2020-09-15 18:57 | disposition home or self-care (01) ==
PROVIDERS: Admitting Provider Obstetrics & Gynecology; Visit Provider Obstetrics & Gynecology
DX: O98.512 Other viral diseases complicating pregnancy, second trimester (principal); U07.1 COVID-19; R19.7 Diarrhea, unspecified; I31.3 Pericardial effusion (noninflammatory); R06.02 Shortness of breath; R06.00 Dyspnea, unspecified; Z3A.27 27 weeks gestation of pregnancy; Z87.891 Personal history of nicotine dependence
CPT/HCPCS: 36415; 59025; 71045; 85025; 93306; 93970; 94640; A9270; C9803; G0378; G0379; U0003; U0005

== ENCOUNTER 2020-12-01 16:03 | Observation (INO) | payer OTHER, SELFPAY ==
[2020-12-01] VITALS (9 sets, daily range): BP systolic 102–137; BP diastolic 68–89; PULSE 88–106
--- NOTE | 2020-12-01 17:42 | OBADM ---
This patient, Deanne Chen, admitted to the OB room Labor/Delivery/Recovery 106 for observation. Patient/family oriented to hospital policies and general routines including ID bracelet, bed and alarms, visiting hours, pain management, procedures, bathroom and other care routines, personal items, smoking policy, room service/diet, and visiting hours. Patient/Family are encouraged to report perceived risks to care and to ask questions if they do not understand what they are told or what they should do.
[2020-12-01] MEDS: ALPRAZolam (*CRX) 0.5 MG TABLET PO (18:51)
--- NOTE | 2020-12-01 19:03 | PM.IMHP ---
H&P: HPI History of Present Illness Date/Time: 12/01/20 19:03 pt arrives to LD for labor evaluation. c/o by emotional distress, pt feels unable to make decisions due to anxiety and depression, has had bouts of crying all day and recent news of husbands infidelity has increased her symptoms. Pt states she doesn't want his babies she needs this baby out to give it to him. pt denies hurting herself while but i can't do this anymore and doesnt want to do anything anymore. Pt sobbing during entire interview also complicated by hx of pubic symphasis separation with need for walker and PT post delivery. GBS negative Chief Complaint: anxiety and depression Review of Systems Review of Systems: All systems reviewed & are unremarkable except as noted in HPI and below PMFSH Past Medical History Medical History (Updated 12/01/20 @ 19:11 by Evangelina Keenan CNM) Asthma Diastasis of symphysis pubis during delivery July 2019 as of Sep 2020; currently 27wks; had miscarriage requiring the D&C Surgical History Surgical History (Updated 09/15/20 @ 10:17 by Kennedy Goodrich MD) History of dilatation and curettage Hx of oophorectomy due to ovarian cyst Family History Family History (Updated 09/15/20 @ 10:18 by Kennedy Goodrich MD) Father Multiple sclerosis Social History Social History (Updated 09/15/20 @ 10:21 by Kennedy Goodrich MD) Social History: patient lives at home with her , daughter(17yo), son (8yo), dtr (13mo). no alcohol use. No history of alcohol abuse. No drug use. No history of IV drug use. She quit tobacco. She is Full Code. she nominates her to be the individual would make medical decisions for her if she is unable. Years smoked: 5 Smoking status: Former smoker Tobacco type: cigarettes Second hand tobacco smoke exposure: No Substance use: never Gender identity (if verbalized by the patient): Female Spiritual care concerns: No Meds Home Medications and Allergies Home Medications Medication Instructions Recorded Confirmed Type PNV cmb#95-ferrous fumarate-FA 1 tablet PO DAILY 07/12/19 09/14/20 History [] amoxicillin 875 mg PO Q12H #20 tablet 09/11/20 09/14/20 Rx acetaminophen [Mapap 650 mg PO Q4H PRN tablet 09/15/20 Rx (acetaminophen)] albuterol sulfate [Proventil HFA] 2 puff INHALATION Q6HRT PRN #1 inh 09/15/20 Rx albuterol sulfate [Ventolin HFA] 2 puff INHALATION Q6H PRN #1 inh 09/15/20 Rx alprazolam 0.25 mg PO Q6H 12/01/20 12/01/20 History sertraline 50 mg PO DAILY 12/01/20 12/01/20 History Allergies Allergy/AdvReac Type Severity Reaction Status Date / Time strawberry Allergy Hives Verified 09/15/19 16:43 azithromycin AdvReac Vomiting Verified 09/11/20 17:19 Vital Signs Vital Signs - 24 hr 12/01/20 16:31 12/01/20 16:45 12/01/20 17:00 Pulse Rate 94 98 95 Blood Pressure 102/89 127/76 123/81 12/01/20 17:15 12/01/20 17:30 12/01/20 17:45 Pulse Rate 92 106 H 88 Blood Pressure 120/81 137/80 136/83 12/01/20 18:00 12/01/20 18:31 12/01/20 18:46 Pulse Rate 92 96 96 Blood Pressure 121/76 126/81 125/68 Exam Const: General: acute distress moderate Orientation/consciousness: Other orientation findings (unwilling to make decisions about current care) Psych: Attitude: cooperative Thought process: Racing thoughts present Insight: Poor insight present (Psych) Judgement: Poor judgement present (Psych) Assessment and Plan Assessment and plan (1) Depression affecting : Code(s): O99.340 - Other mental disorders complicating , unspecified trimester; F32.A - Depression, unspecified Status: Acute Additional Plan 38.3 weeks gestation 1. pt unable and unwilling to make medical decisions due to anxiety and worsening depression 2. Spoke with DR. Martin and transfer initiated to [facility], accepted by DR. Reddy. for delivery and psychiatric treatment note a
--- NOTE | 2020-12-01 19:58 | PC.NURSE ---
1850 - pt removed from [facility] & [place] monitoring. Pt getting dressed in her clothes for transport. RN & CNM continuously monitoring pt for suicidal precautions. 1940 - [facility] Transport Team at bedside, assume care.
== END 2020-12-01 19:45 | disposition short-term general hospital (02) ==
PROVIDERS: Admitting Provider Obstetrics & Gynecology; PCP Family Medicine Sports Medicine; Visit Provider Obstetrics & Gynecology
DX: O99.343 Other mental disorders complicating pregnancy, third trimester (principal); F41.8 Other specified anxiety disorders; Z3A.38 38 weeks gestation of pregnancy; Z87.891 Personal history of nicotine dependence
CPT/HCPCS: A9270; G0378; G0379